=== PATIENT | female | born 1970 | race Caucasian/White ===

== ENCOUNTER 2017-04-27 18:01 | Emergency (ER) | payer BC ==
[~2017-04-27 18:01] MED LIST: ABILIFY2 PO; ADVIL PO; CYMBALTA20 PO; LORT7 PO; LORTAB10 PO; YAZ1 TAB PO
[2017-04-27 19:56] LABS: WBC (NOT ORDERED) (RFLEX) 0 (0-5)
[2017-04-27 20:03] LABS: ASCORBIC ACID (UR NOT ORDER) NEG (NEG); BILIRUBIN, URINE NEGATIVE (NEG); ER URINALYSIS TAT 0 Hrs 08 Mins; KETONE, URINE NEGATIVE (NEG); LEUKOCYTE ESTERASE(NOT OR NEG (NEG); NITRITE (URINE) NEG (NEG)
[2017-04-27 20:45] LABS: BASOPHILS 0.3 %; BASOPHILS ABSOLUTE 0.03 10/3/uL (0.0-0.16); EOSINOPHILS 0.7 %; EOSINOPHILS ABSOLUTE 0.07 10/3/uL (0.0-0.53); ER CBC TAT 0 Hrs 05 Mins; HEMATOCRIT 40.1 % (36.0-48.0); HEMOGLOBIN 13.8 g/dL (12.0-16.0); IMMATURE GRANULOCYTES 0.2 %; IMMATURE GRANULOCYTES ABSOLUTE 0.02 10/3/uL (0.0-0.11); LYMPHOCYTES 22.7 %; LYMPHOCYTES ABSOLUTE 2.22 10/3/uL (0.67-4.30); MANUAL DIFF NO %; MEAN CORPUS HGB CONC 34.4 g/dL (32.0-36.0); MEAN CORPUSCULAR HEMOGLOB 33.2 pg (26.0-34.0); MEAN CORPUSCULAR VOLUME 96.4 fL (80-100); MEAN PLATELET VOLUME 11.3 fL (9.2-13.0); MONOCYTES 5.6 %; MONOCYTES ABSOLUTE 0.55 10/3/uL (0.21-1.20); NEUTROPHILS 70.5 %; NEUTROPHILS ABSOLUTE 6.89 10/3/uL (2.02-8.40); PLATELET COUNT 326 10/3/uL (150-400); RBC DISTRIBUTION WIDTH 13.3 % (12.0-16.0); RED CELL COUNT 4.16 10/6/uL (4.0-5.6); WHITE BLOOD CELLS 9.8 10/3/uL (4.5-10.5)
[2017-04-27 20:58] LABS: A/G RATIO 1.1 (0.7-1.9); ALBUMIN 4.1 G/DL (3.5-5.0); ALKALINE PHOSPHATASE 80 U/L (45-117); BUN (BLOOD UREA NITROGEN) 14 MG/DL (6-23); CHLORIDE, SERUM 107 MMOL/L (96-112); CO2 (CARBON DIOXIDE) 29 MMOL/L (24-34); GFR AFRICAN AMERICAN 119 ML/MIN (>=60); GFR NON AFRICAN AMERICAN 102 ML/MIN (>=60); GLOBULIN 3.7 G/DL (2.5-4.1); GLUCOSE, SERUM 91 MG/DL (60-99); POTASSIUM, SERUM 4.2 MMOL/L (3.5-5.3); SGOT(AST) 22 U/L (5-40); SGPT(ALT) 33 U/L (5-65); SODIUM, SERUM 141 MMOL/L (135-148); TOTAL BILIRUBIN 0.3 MG/DL (0-1.2); TOTAL PROTEIN 7.8 G/DL (6.0-8.5)
== END 2017-04-27 21:52 | disposition home or self-care (01) ==
LOC: ER 18:01
PROVIDERS: Physician Assistant
DX: N20.0 Calculus of kidney (principal); R31.9 Hematuria, unspecified; Z90.710 Acquired absence of both cervix and uterus; Z88.0 Allergy status to penicillin; Z88.5 Allergy status to narcotic agent; Z88.8 Allergy status to other drugs, medicaments and biological substances; Z91.013 Allergy to seafood; Z79.899 Other long term (current) drug therapy
CPT/HCPCS: 74176; 80053; 81001; 83690; 85025; 96374; 99284; J2405

== ENCOUNTER 2017-05-06 09:44 | Day surgery (SDC) | payer BC ==
--- NOTE | ~2017-05-06 | OP ---
Record Of Operation [facility] [address] [place]. [address] NAME: MEGAN HOANG : 66 STATUS : REG [facility] PAT#: [id number] AGE: 46 ADM/REG DATE : 05/06/17 MR#: [id number] REPORT SERV DATE: 05/06/17 DICTATED BY: JONATAN MILLER DATE: 05/06/17 REPORT STATUS : Draft TRANSCRIBED BY: MODL DATE: 05/06/17 DATE OF PROCEDURE: 05/06/2017 PREOPERATIVE DIAGNOSIS: Distal left ureteral calculus. POSTOPERATIVE DIAGNOSIS: Distal left ureteral calculus. PROCEDURE: Cystoscopy, left retrograde pyelogram, left ureteroscopic stone extraction with in situ laser lithotripsy and left double-J stent placement. SURGEON: Jonatan Miller M.D. ANESTHESIA: General endotracheal. BLOOD LOSS: Less than 5 mL. FLUID REPLACEMENT: Unknown. DRAINS: 6-Vietnamese, 24 cm double-J left ureteral stent with the strings removed. INDICATION: 46-year-old white female with a distal left ureteral calculus measuring approximately 6 mm. TECHNIQUE: The patient was identified and brought to the operating room, administered general anesthetic agent by the Anesthesia Service and intubated. She was positioned in dorsal lithotomy position. Vulva, groin, and introitus were prepped and draped in the usual sterile fashion. A 22-Vietnamese cystoscopic sheath was placed in bladder with an obturator. The obturator was removed and the 30-degree cystoscopic lens was inserted. The left ureteral orifice appeared somewhat volcano like. There was some mild edema about it. The right ureteral orifice appeared normal. I cannulated the left ureteral orifice. I performed a left retrograde pyelogram. There was some [id number] hydroureteronephrosis. I cannot tell if there was a stone present or not. I passed a 0.35 wire up the left ureter. I removed the cystoscope and attempted to pass a small semi-rigid ureteroscope into the distal left ureter. The ureteral orifice was too tight. I removed the ureteroscope. Then I used the axial dilators and dilated just enough to accept a small ureteroscope. I reintroduced the ureteroscope. I was able to advance it into the distal ureter, and the stone was identified just above the ureterovesical junction. I took a 200-micron Holmium laser fiber and began fragmenting the stone. I broke it into multiple fragments. Then, I used an N-Fredy device and extracted the stone fragments. That will clear the ureter of all stones. I advanced ureteroscope up to the level of the iliac vessels. No further stones were seen. I backfilled the renal pelvis with dilute contrast material and removed the ureteroscope. I back loaded the cystoscope onto the wire, positioned a 6-Vietnamese, 24 cm double-J left ureteral stent. The proximal end was coiled in Record Of Operation [address] [place]. [address] NAME: MEGAN HOANG : 66 STATUS : REG [facility] [place] [place] PAT#: [id number] AGE: 46 ADM/REG DATE : 05/06/17 MR#: [id number] REPORT SERV DATE: 05/06/17 DICTATED BY: JONATAN MILLER DATE: 05/06/17 REPORT STATUS : Draft TRANSCRIBED BY: MODL DATE: 05/06/17 the renal pelvis under fluoroscopy. The distal end in the bladder under direct vision. The string and the wire removed. I then drained the bladder and removed the stone fragments to be collected and sent for chemical analysis. The patient was awakened and taken to the recovery unit in a stable and satisfactory condition. PF/MODHortensia Jonatan Miller M.D. / [id number] CC: Azael Bruner M.D.
[2017-05-11 17:04] LABS: STONE COMPOSITION TWO DNR (())
[2017-08-20] MEDS ORDERED: NABUMETONE750 MG PO (00:03)
[2017-08-20] MEDS ORDERED: NORCO1 TAB PO (00:03)
[2017-08-20] MEDS ORDERED: GRALISE600 MG PO (00:03)
[2017-08-20] MEDS ORDERED: AMB10 PO (00:04)
[2017-08-20] MEDS ORDERED: FLEX PO (00:04)
[2017-08-20] MEDS ORDERED: XALAT OPH (00:05)
[2017-08-20] MEDS ORDERED: CHANTIX1 PO (00:05)
[2017-08-20] MEDS ORDERED: BUTRANS1 EAC2 TOP (00:05)
== END 2017-05-06 18:50 | disposition home or self-care (01) ==
LOC: SDC 09:44
PROVIDERS: Urology
PROC: 0T778DZ Dilation of Left Ureter with Intraluminal Device, Via Natural or Artificial Opening Endoscopic (ICD-10-PCS; 2017-05-06)
PROC: 0TF78ZZ Fragmentation in Left Ureter, Via Natural or Artificial Opening Endoscopic (ICD-10-PCS; principal; 2017-05-06 11:15)
DX: N13.2 Hydronephrosis with renal and ureteral calculous obstruction (principal); F17.210 Nicotine dependence, cigarettes, uncomplicated; Z88.0 Allergy status to penicillin; Z88.5 Allergy status to narcotic agent; Z88.8 Allergy status to other drugs, medicaments and biological substances
CPT/HCPCS: 74420; 82365; A9270-GY; C1758; C2617; J1170; J2250; J2405; J2710; J3010; Q9967